=== PATIENT | female | born 1965 | race Hispanic/Latino ===

== ENCOUNTER 2017-06-03 09:22 | Day surgery (SDC) | payer OTHER ==
[~2017-06-03] VITALS: Ht 157.5 cm; Wt 68.0 kg
[2017-06-03 08:25] VITALS: BP 113/74; PULSE 54; RESP 12; O2SAT 94
[~2017-06-03 09:22] MED LIST: 0.9% Sodium Chloride 1,000 ML IV SCH; MULT-1105 PO; Sodium Chloride LOK Flush 10 mL Syringe IV PRN; fentaNYL-PF 50 mCg/mL 2 mL Inj IVPUSH PRN
[2017-06-03 09:47] VITALS: BP 130/85; PULSE 85; RESP 16; O2SAT 98
[2017-06-03 10:39] VITALS: BP 92/68; PULSE 82; RESP 10; O2SAT 95
[2017-06-03 10:49] VITALS: BP 97/68; PULSE 88; RESP 12; O2SAT 94
[2017-06-03 11:00] VITALS: BP 107/71; PULSE 98; RESP 12; O2SAT 97
--- NOTE | 2017-06-03 13:26 | ENDO ---
[address] [address] ENDOSCOPY PROCEDURE PATIENT: MAJOR BERGER : 1965 MR#: [id number] ADMIT: 06/03/2017 JOB ID: [id number] OPERATION: Esophagogastroduodenoscopy (EGD) with biopsy and colonoscopy. PREOPERATIVE DIAGNOSIS(ES): Constipation and epigastric pain. POSTOPERATIVE DIAGNOSIS(ES): 1. Mild nonerosive gastritis. 2. Sigmoid diverticulosis which was mild. 3. Small internal hemorrhoids. ANESTHESIA: Fentanyl 175 mcg, Versed 8 mg IV administered. COMPLICATIONS: None. BLOOD LOSS: Minimal. DESCRIPTION OF PROCEDURE: After the risks and benefits were explained to the patient, informed consent was obtained. After anesthesia was administered, the upper endoscope was inserted into the mouth and intubated through the esophagus and stomach, to the second portion of the duodenum, and the mucosa carefully examined. After procedure was done, the scope was withdrawn and the procedure terminated. A colonoscope was inserted from rectum to cecum and the mucosa carefully examined. Prep of the patient was excellent. After the procedure was done, the scope was withdrawn and the procedure terminated./ FINDINGS: Upon inspection of the esophagus, the esophagus appeared normal, without masses, ulcers, or lesions. Z-line located 35 cm from incisors. Upon entering the stomach, there was mild nonerosive gastritis that was seen in the antrum. No masses or ulcers were seen. Retroflexion was normal. Duodenal bulb, first and second portion were normal. Biopsies taken from antrum and body of stomach. On the upper endoscopy there was a small hiatal hernia that was seen. Upon inspection of the anus, no masses, hemorrhoids, ulcers, or fissures that were seen throughout the entire examination. There was scattered nonbleeding sigmoid diverticulosis which was mild. No polyps or masses were seen. Retroflexion showed small internal hemorrhoids. IMPRESSIONS: 1. Small hiatal hernia. 2. Mild nonerosive gastritis. 3. Mild sigmoid diverticulosis. 4. Small internal hemorrhoids. RECOMMENDATIONS: Await pathology results. High-fiber diet. Follow up in GI Clinic as needed.
--- NOTE | 2017-06-06 14:53 | PATH ---
SURGICAL PATHOLOGY Attending Physician:Aiden Pineda MD CASE STATUS: Signed Out PATIENT NAME: MAJOR BERGER PID: [id number] : 1965 DATE COLLECTED:06/03/2017 16:37 SPECIMEN: 1: Gastric, Biopsy 2: Gastric, Biopsy 3: Duodenum, Biopsy CLINICAL HISTORY: 1). ANTRUM 2). GASTRIC BODY 3). DUODENUM FINAL DIAGNOSIS: 1. 2.STOMACH, ANTRUM, BODY, BIOPSIES: HELICOBACTER PYLORI GASTRITIS. Negative for intestinal metaplasia. Negative for dysplasia and malignancy. 3.DUODENUM, BIOPSIES: DUODENAL MUCOSA WITH NO DIAGNOSTIC ABNORMALITY. Negative for active inflammation, features of sprue, dysplasia, and malignancy. ICD10 R10.9 B96.81 GROSS DESCRIPTION: Received are three formalin-filled containers, each labeled with the patient' s name. 1. Received in formalin, labeled with the patient' s name and "antrum", are two fragments of gonzalez, soft tissue ranging in size from 0.1 x 0.1 x 0.1 cm to 0.3 x 0.2 x 0.1 cm. All fragments are totally submitted in cassette 1A. 2. Received in formalin, labeled with the patient' s name and "gastric body", are two fragments of gonzalez, soft tissue ranging in size from 0.1 x 0.1 x 0.1 cm to 0.4 x 0.2 x 0.1 cm. All fragments are totally submitted in cassette 2A. 3. Received in formalin, labeled with the patient' s name and "duodenum", is one fragment of gonzalez, soft tissue measuring 0.2 x 0.2 x 0.1 cm. The fragment is totally submitted in cassette 3A. ([id number]) MICRO DESCRIPTION: See diagnosis. ICD-9 CODES: CPT CODES: 1: 79549 2: 42707 3: 12205 Electronically Signed Out Kacy Mays MD [facility] Pathology [facility] [address], [place] [address] Technical component performed at [facility], [address], [place], [address]
== END 2017-06-03 23:59 | disposition home or self-care (01) ==
LOC: END 09:22
PROVIDERS: ATTEND Internal Medicine Gastroenterology
DX: K59.00 Constipation, unspecified (principal); K57.30 Diverticulosis of large intestine without perforation or abscess without bleeding; K64.8 Other hemorrhoids; K29.70 Gastritis, unspecified, without bleeding; B96.81 Helicobacter pylori [H. pylori] as the cause of diseases classified elsewhere; K44.9 Diaphragmatic hernia without obstruction or gangrene; K21.9 Gastro-esophageal reflux disease without esophagitis; R59.0 Localized enlarged lymph nodes
CPT/HCPCS: 43239; 45380; 99153; G0500; J2250; J3010; J7030